=== PATIENT | male | born 1950 | race Asian ===

== ENCOUNTER → 2021-04-13 | Outpatient (CLI) | payer OTHER ==
--- NOTE | 2021-04-13 17:53 | RAD ---
EXAM: XR CHEST 2V 04/13/2021 12:16 PM CLINICAL INDICATION: Shortness of breath, Covid, pneumonia in October COMPARISON: None TECHNIQUE: PA and lateral views of the chest FINDINGS: The heart and mediastinum are normal. Lungs are adequately expanded. There are focal opaci ties at the left lung base. The right lung is clear. No pleural effusion or pneumothorax. No acute os seous abnormality. IMPRESSION: Focal opacities at left lung base. This could be partially due to prominent pericardial fat pad. Pneumonia or atelectasis also possible. Electronically signed by: Nilda Guillermo MD (04/13/2021 5:51 PM) [id number]
== END ==
LOC: RAD 12:02
PROVIDERS: ATTEND Internal Medicine Pulmonary Disease
DX: U07.1 COVID-19 (principal); J12.82 Pneumonia due to coronavirus disease 2019
CPT/HCPCS: 71046

== ENCOUNTER → 2021-04-19 | Outpatient (CLI) | payer OTHER ==
--- NOTE | 2021-04-19 12:37 | RESP ---
DATE OF SERVICE: 04/19/2021 PULMONARY FUNCTION TEST REFERRING PHYSICIAN: Isaiah Meadows MD The patient's FVC was 2.82, which is 87% predicted. FEV1 2.09, which is 88% predicted. The FEV1/FVC ratio was normal. No bronchodilators were given. Lung volumes showed total lung capacity was 171% predicted and residual volume of 336% predicted. Diffusion capacity was normal. IMPRESSION: 1. No significant obstructive airway disease. 2. No bronchodilator was given. 3. Lung volume is consistent with hyperinflation. 4. Normal diffusion capacity. RADHA/KETTY DR: SANCHEZ/chelsey TID: [id number]
== END ==
LOC: PF 08:58
PROVIDERS: ATTEND Internal Medicine Pulmonary Disease
DX: J45.909 Unspecified asthma, uncomplicated (principal)
CPT/HCPCS: 94010; 94726; 94729